=== PATIENT | male | born 1935 | race Asian ===

== ENCOUNTER 2018-03-17 12:40 | Emergency (ER) | payer OTHER ==
[2018-03-17 13:20] LABS: Potassium 4.2 mEq/L (3.6-5.0)
[2018-03-17 13:22] LABS: Absolute Lymphocytes (CBC) 1.6 K/uL (0.7-4.9); Absolute Monocytes 0.7 K/uL (0.1-1.3); Basophils % 0.5 % (0-1.3); Eosinophils % 0.8 % (0-4.4); Hematocrit 40.3 % (39.6-49.0); MCH 30.5 pg (27.0-35.0); MCV 92.9 fL (80-100); MPV 9.8 fL (7.6-11.3); Monocytes % 9.7 % (3.3-12.3); RBC Red Blood Cell Count 4.34 M/uL (4.33-5.43)
[2018-03-17 13:48] LABS: Urine Blood NEGATIVE (NEG); Urine Glucose NEGATIVE (NEG); Urine Protein 1+ (NEG); Urine Specific Gravity 1.015 (1.005-1.030)
--- NOTE | 2018-03-17 14:54 | EDPHYS ---
Physician Documentation [facility] Name: Mary Wray Age: 82 yrs Sex: Male : 1935 Arrival Date: 03/17/2018 Time: 12:42 Bed 2 Private MD: ED Physician Chetan Bey HPI: 03/17 12:56 This 82 yrs old Male presents to ER via EMS with complaints of combative. kdr 12:56 The patient was reported to be combative at the MD. He is normally A\T\O x1 and that has kdr not changed. He is presently not combative. Onset: The symptoms/episode began/occurred this morning. Severity of symptoms: At their worst the symptoms were mild in the emergency department the symptoms have resolved. It is unknown whether or not the patient has had similar symptoms in the past. It is unknown whether or not the patient has recently seen a physician. Historical: - Allergies: 12:47 No Known Allergies; hb - PMHx: 13:43 Hypertension; Alzheimers; Depression; Angina; Hypothyroidism; hb - Immunization history:: Adult Immunizations up to date. - Social history:: Smoking status: unknown. - Ebola Screening: : No symptoms or risks identified at this time. ROS: 12:56 Constitutional: Unable to determine due to patient baseline dementia kdr 12:56 Unable to obtain ROS due to baseline dementia. Exam: 12:56 Constitutional: This is a well developed, well nourished patient who is awake, alert, kdr and in no acute distress. Head/Face: Normocephalic, atraumatic. Eyes: Pupils equal round and reactive to light, extra-ocular motions intact. Lids and lashes normal. Conjunctiva and sclera are non-icteric and not injected. Cornea within normal limits. Periorbital areas with no swelling, redness, or edema. Neck: Trachea midline, no thyromegaly or masses palpated, and no cervical lymphadenopathy. Supple, full range of motion without nuchal rigidity, or vertebral point tenderness. No Meningismus. Chest/axilla: Normal chest wall appearance and motion. Nontender with no deformity. No lesions are appreciated. Cardiovascular: Regular rate and rhythm with a normal S1 and S2. No gallops, murmurs, or rubs. Normal PMI, no JVD. No pulse deficits. Respiratory: Lungs have equal breath sounds bilaterally, clear to auscultation and percussion. No rales, rhonchi or wheezes noted. No increased work of breathing, no retractions or nasal flaring. Abdomen/GI: Soft, non-tender, with normal bowel sounds. No distension or tympany. No guarding or rebound. No evidence of tenderness throughout. Back: No spinal tenderness. No costovertebral tenderness. Full range of motion. Skin: Warm, dry with normal turgor. Normal color with no rashes, no lesions, and no evidence of cellulitis. MS/ Extremity: Pulses equal, no cyanosis. Neurovascular intact. Full, normal range of motion. Vital Signs: 12:37 BP 170 / 75; Pulse 76; Resp 15; Temp 99.1; Pulse Ox 77% ; hb 13:30 BP 137 / 56; Pulse 69; Resp 17; Pulse Ox 100% on R/A; hb 14:30 BP 145 / 81; Pulse 67; Resp 15; Pulse Ox 100% on R/A; hb MDM: 14:54 Patient medically screened. kdr 16:11 Data reviewed: vital signs, nurses notes, lab test result(s), radiologic studies. kdr Counseling: I had a detailed discussion with the patient and/or guardian regarding: the historical points, exam findings, and any diagnostic results supporting the discharge/admit diagnosis, lab results, radiology results, the need for outpatient follow up. ED course: The patient was stable and there was no evidence of aggression in the ED. 03/17 12:55 Order name: CBC with Diff; Complete Time: 14:50 [facility] 03/17 12:55 Order name: Chem 7; Complete Time: 14:50 [facility] 03/17 12:55 Order name: Urine Dipstick-Ancillary (obtain specimen); Complete Time: 13:39 [facility] 03/17 12:55 Order name: CXR XRAY [facility] 03/17 13:40 Order name: Urine Dipstick--Ancillary (enter results) iw Administered Medications: No medications were administered Disposition: 03/17/18 14:54 Discharged to Home. Impression: Altered mental status, unspecified. - Condition is Stable. - Discharge Instructions: Confusion, Altered Mental Status. - Medication Reconciliation Form, Thank You Letter form. - Follow up: Private Physician; When: 2 - 3 days; Reason: If symptoms return, Further diagnostic work-up, Recheck today's complaints, Continuance of care, Re-evaluation by your physician. - Problem is an acute exacerbation. - Symptoms have improved. Signatures: Dispatcher [employer] Chetan Joel MD MD kdr Kavitha Linder RN RN iw Concepción Mckeon RN RN Corrections: (The following items were deleted from the chart) 16:20 14:54 03/17/2018 14:54 Discharged to Home. Impression: Altered mental status, iw unspecified. Condition is Stable. Forms are Medication Reconciliation Form, Thank You Letter, Antibiotic Education, Prescription Opioid Use. Follow up: Private Physician; When: 2 - 3 days; Reason: If symptoms return, Further diagnostic work-up, Recheck today's complaints, Continuance of care, Re-evaluation by your physician. Problem is an acute exacerbation. Symptoms have improved. kdr
--- NOTE | 2018-03-17 14:54 | ER ---
Nurse's Notes [facility] Name: Mary Wray Age: 82 yrs Sex: Male : 1935 Arrival Date: 03/17/2018 Time: 12:42 Bed 2 Private MD: Diagnosis: Altered mental status, unspecified Presentation: 03/17 12:44 Presenting complaint: EMS states: senior care staff reports pt is more combative and hb verbally abusive than normal. Hx Alzheimer's, AOx1 at baseline. Transition of care: patient was received from another setting of care (long-term care facility), [facility]. Onset of symptoms was March 17, 2018. Risk Assessment: Do you want to hurt yourself or someone else? Other: unable to assess, pt is confused. 12:44 Method Of Arrival: EMS: [facility] hb 12:44 Acuity: GIANA 2 hb 12:45 Initial Sepsis Screen: Does the patient meet any 2 criteria? No. Patient's initial iw sepsis screen is negative. Does the patient have a suspected source of infection? No. Patient's initial sepsis screen is negative. Care prior to arrival: None. Historical: - Allergies: 12:47 No Known Allergies; hb - PMHx: 13:43 Hypertension; Alzheimers; Depression; Angina; Hypothyroidism; hb - Immunization history:: Adult Immunizations up to date. - Social history:: Smoking status: unknown. - Ebola Screening: : No symptoms or risks identified at this time. Screenin:50 Abuse screen: no s/s abuse. hb 12:50 Nutritional screening: No deficits noted. Tuberculosis screening: No symptoms or risk hb factors identified. Fall Risk Total Bentley Fall Scale indicates High Risk Score (45 or more points). Fall prevention measures have been instituted. Side Rails Up X 2 Frequent Obs/Assessments Occuring As available patient and family educated on Fall Prevention Program and Strategies. Assessment: 12:45 General: Appears in no apparent distress. Behavior is calm, cooperative. Pain: Denies hb pain. Neuro: Level of Consciousness is awake, alert, obeys commands, confused, Oriented to person. Cardiovascular: Heart tones S1 S2 present Capillary refill < 3 seconds Patient's skin is warm and dry. Respiratory: Airway is patent Trachea midline Respiratory effort is even, unlabored, Respiratory pattern is regular, symmetrical, Breath sounds are clear bilaterally. GI: No signs and/or symptoms were reported involving the gastrointestinal system. : No signs and/or symptoms were reported regarding the genitourinary system. EENT: No signs and/or symptoms were reported regarding the EENT system. Derm: No signs and/or symptoms reported regarding the dermatologic system. Skin is intact, is healthy with good turgor, Skin is pink, warm \T\ dry. Musculoskeletal: No signs and/or symptoms reported regarding the musculoskeletal system. 13:07 Reassessment: received report from WINTER Acevedo at [facility], states that pt walked iw up to Nurse's station and started throwing picture frames and pill crushers, the DON and CAR DESIGNER on duty were unable to calm him down, pt had similar episode 2 days ago but staff was able to control him, denies any other complaints. 13:43 Reassessment: Patient appears in no apparent distress at this time. pt educated on need iw for urine specimen, pt stood with assistance at bedside, urine sample obtained via urinal. 14:39 Reassessment: Patient appears in no apparent distress at this time. Patient and/or hb family updated on plan of care and expected duration. Pain level reassessed. 15:07 Reassessment: Report called to ROBSON Gutierrez at [facility]. hb 16:19 Reassessment: Patient appears in no apparent distress at this time. pt ambulated out of iw ER with steady gait, with polymer tester. Vital Signs: 12:37 BP 170 / 75; Pulse 76; Resp 15; Temp 99.1; Pulse Ox 77% ; hb 13:30 BP 137 / 56; Pulse 69; Resp 17; Pulse Ox 100% on R/A; hb 14:30 BP 145 / 81; Pulse 67; Resp 15; Pulse Ox 100% on R/A; hb ED Course: 12:42 Patient arrived in ED. hj 12:45 Patient has correct armband on for positive identification. iw 12:47 Triage completed. hb 12:47 Arm band placed on right wrist. hb 12:49 Chetan Bey MD is Attending Physician. kdr 13:06 Initial lab(s) drawn, by me, sent to lab. Inserted saline lock: 20 gauge in left iw antecubital area, using aseptic technique. Blood collected. 13:47 Concepción Mckeon, RN is Primary Nurse. hb 13:58 X-ray completed. Portable x-ray completed in exam room. Patient tolerated procedure jb2 well. 14:00 CXR XRAY In Process Unspecified. EDMS 16:19 No provider procedures requiring assistance completed. IV discontinued, intact, iw bleeding controlled, No redness/swelling at site. Pressure dressing applied. Administered Medications: No medications were administered Outcome: 14:54 Discharge ordered by . kdr 16:19 [facility] iw 16:19 Condition: good 16:19 Discharge instructions given to polymer tester, Instructed on discharge instructions, follow up and referral plans. Demonstrated understanding of instructions, follow-up care. 16:20 Patient left the ED. iw Signatures: Dispatcher [employer] EDMS Chetan Bey MD MD [facility] jb2 Kavitha Linder, RN RN Steven Ray RN ROBSON Concepción Mckeon RN RN hb
--- NOTE | 2018-03-17 15:10 | RAD REPORT ---
EXAM DESCRIPTION: RAD - Chest Single View - 03/17/2018 2:00 pm CLINICAL HISTORY: Transient alteration of awareness, combative, possible pneumonia COMPARISON: None. TECHNIQUE: AP portable chest image was obtained 1358 hours . FINDINGS: No focal infiltrate. No failure or volume overload. Calcified granuloma is seen near the r ight hilum and there are apical pleural or parenchymal calcifications at the right apex. Minimal pleu ral plaquing at the lateral upper left lung field. Heart and vasculature are normal. No measurable pl eural effusion and no pneumothorax. No gross bony abnormality seen. No acute aortic findings suspecte d. IMPRESSION: No pneumonia or other acute cardiopulmonary finding. Chronic pleural and parenchymal changes are detailed above.
== END 2018-03-17 16:20 | disposition home or self-care (01) ==
LOC: ER 12:40
DX: R41.82 Altered mental status, unspecified (principal); I10 Essential (primary) hypertension; E03.9 Hypothyroidism, unspecified; G30.9 Alzheimer's disease, unspecified; F02.80 Dementia in other diseases classified elsewhere, unspecified severity, without behavioral disturbance, psychotic disturbance, mood disturbance, and anxiety
CPT/HCPCS: 36415; 71045; 80048; 81003; 85025; 99284

== ENCOUNTER 2018-03-31 23:36 | Emergency (ER) | payer OTHER ==
[2018-04-01 00:45] LABS: Absolute Monocytes 0.6 K/uL (0.1-1.3); Absolute Neutrophil 3.2 K/uL (1.8-8.0); Basophils % 0.3 % (0-1.3); Eosinophils % 1.1 % (0-4.4); Lymphocytes % 33.3 % (15.3-44.8); MCH 30.8 pg (27.0-35.0); MPV 9.7 fL (7.6-11.3); RBC Red Blood Cell Count 4.41 M/uL (4.33-5.43)
[2018-04-01 00:46] LABS: Potassium 3.9 mmol/L (3.5-5.1)
--- NOTE | 2018-04-01 01:49 | EDPHYS ---
Physician Documentation [facility] Name: Mary Wray Age: 82 yrs Sex: Male : 1935 Arrival Date: 03/31/2018 Time: 23:40 Bed 6 Private MD: ED Physician John York HPI: 04/01 00:10 This 82 yrs old Male presents to ER via EMS with complaints of Fall Injury. cp 00:10 Details of fall: The patient fell from an upright position. Onset: The symptoms/episode cp began/occurred found sitting on ground by staff of [facility]. Associated injuries: The patient sustained injury to the low back, pain. 00:10 Patient was found sitting on ground in room by nursing staff tonight. cp Historical: - Allergies: 03/31 23:45 No Known Allergies; tl2 - Home Meds: 23:45 clonidine HCl 0.1 mg Oral tab PRN [Active]; tl2 - PMHx: 23:45 Alzheimers; Angina; Depression; Hypertension; Hypothyroidism; tl2 - Immunization history:: Adult Immunizations up to date. - Social history:: Smoking status: Patient/guardian denies using tobacco. - Ebola Screening: : No symptoms or risks identified at this time. ROS: 04/01 00:17 Back: Positive for pain at rest, of the lumbar area. cp 00:17 Constitutional: Negative for fever. cp 00:17 Unable to obtain ROS due to baseline dementia. Exam: 00:22 Constitutional: The patient appears in no acute distress, alert, awake, cp non-diaphoretic, non-toxic, well developed, well nourished. 00:22 Head/Face: Normocephalic, atraumatic. cp 00:22 Eyes: Periorbital structures: appear normal, Pupils: equal, round, and reactive to light and accomodation, Conjunctiva: normal, no exudate, no injection, Sclera: no appreciated abnormality, Lids and lashes: appear normal, bilaterally. 00:22 ENT: External ear(s): are unremarkable, Ear canal(s): are normal, clear, TM's: bulging, is not appreciated, erythema, is not appreciated, bilaterally, Nose: is normal, Mouth: Lips: moist, Oral mucosa: pink and intact, moist, Posterior pharynx: is normal, airway is patent, no erythema, no exudate. 00:22 Neck: C-spine: vertebral tenderness, is not appreciated, crepitus, is not appreciated, ROM/movement: is normal, without pain, no range of motions limitations, no meningismus, no nuchal rigidity. 00:22 Chest/axilla: Inspection: normal, Palpation: is normal, no crepitus, no tenderness. 00:22 Cardiovascular: Rate: normal, Rhythm: regular. 00:22 Respiratory: the patient does not display signs of respiratory distress, Respirations: normal, no use of accessory muscles, no retractions, no splinting, no tachypnea, labored breathing, is not present, Breath sounds: are clear throughout, no decreased breath sounds, no stridor, no wheezing. 00:22 Abdomen/GI: Inspection: abdomen appears normal, Bowel sounds: active, all quadrants, Palpation: abdomen is soft and non-tender, in all quadrants, voluntary guarding, is not appreciated, involuntary guarding, is not appreciated. 00:22 Back: pain, that is very mild, of the lumbar area, ROM is normal, Straight leg raises: of both lower extremities does not illicit pain. 00:22 Musculoskeletal/extremity: Exam is negative for decreased range of motion, deformity, injury. 00:22 Skin: cellulitis, is not appreciated, no rash present. 00:22 Neuro: Orientation: to person, Mentation: able to follow commands, Motor: moves all fours, strength is normal. Vital Signs: 03/31 23:45 BP 154 / 71; Pulse 65; Resp 18; Temp 97.7(O); Pulse Ox 95% on R/A; Weight 49.9 kg; tl2 Height 5 ft. 5 in. (165.10 cm); Pain 0/10; 04/01 00:43 BP 144 / 66; Pulse 61; Resp 16; Pulse Ox 100% on R/A; Pain 0/10; tl1 01:48 BP 162 / 66; Pulse 56; Resp 18; Pulse Ox 100% on R/A; tl2 02:12 BP 147 / 72; Pulse 62; Resp 17; Pulse Ox 98% on R/A; Pain 0/10; tl1 03/31 23:45 Body Mass Index 18.30 (49.90 kg, 165.10 cm) tl2 MDM: 03/31 23:49 Patient medically screened. 04/01 01:46 Data reviewed: vital signs, nurses notes, lab test result(s), radiologic studies, CT cp scan, plain films. Test interpretation: by ED physician or midlevel provider: plain radiologic studies. ED course: CT results of head/c-spine negative for significant injury. Will discharge patient back to [facility] for continued monitoring. 04/01 00:02 Order name: BMP; Complete Time: 00:52 cp 04/01 00:52 Interpretation: Normal except: BUN 23; GFR 72. cp 04/01 00:02 Order name: CBC with Diff; Complete Time: 00:52 cp 04/01 00:02 Order name: XRAY Pelvis cp 04/01 00:02 Order name: XRAY Lumbar Spine (3 Views) cp 04/01 00:02 Order name: CT Head C Spine cp 04/01 01:46 Order name: Urine Dipstick--Ancillary (enter results) 2 04/01 00:02 Order name: Urine Dipstick-Ancillary (obtain specimen); Complete Time: 02:49 cp Administered Medications: No medications were administered Point of Care Testing: Blood Glucose: 03/31 23:45 Blood Glucose: 95 mg/dL; tl2 Ranges: Critical Glucose Levels:Adult <50 mg/dl or >400 mg/dl <40 mg/dl or >180 mg/dl Disposition: 04/01 02:25 Chart complete. 06:48 Co-signature as Attending Physician, John York MD. Disposition: 04/01/18 01:49 Discharged to Home. Impression: Low back pain. - Condition is Stable. - Discharge Instructions: Back Pain, Adult. - SBAR form, Medication Reconciliation Form, Thank You Letter, Antibiotic Education, Prescription Opioid Use form. - Follow up: Private Physician; When: 1 - 2 days; Reason: Recheck today's complaints. - Problem is new. - Symptoms are unchanged. - Notes: may take OTC tylenol as directed for pain Signatures: Dispatcher [employer] EDMS Pj Rao PA PA cp Deepti Camacho RN RN tl2 John York MD MD Corrections: (The following items were deleted from the chart) 02:50 01:49 04/01/2018 01:49 Discharged to Home. Impression: Low back pain. Condition is tl2 Stable. Forms are Medication Reconciliation Form, Thank You Letter, Antibiotic Education, Prescription Opioid Use. Follow up: Private Physician; When: 1 - 2 days; Reason: Recheck today's complaints. Problem is new. Symptoms are unchanged. cp
--- NOTE | 2018-04-01 01:49 | ER ---
Nurse's Notes [facility] Name: Mary Wray Age: 82 yrs Sex: Male : 1935 Arrival Date: 03/31/2018 Time: 23:40 Bed 6 Private MD: Diagnosis: Low back pain Presentation: 03/31 23:41 Presenting complaint: EMS states: Found in room at [facility] sitting on floor. tl2 jail reported that pt had altered mental status. Pt is awake and alert. Pt denies injury. Hx of Alzheimer's baseline AOx1. Transition of care: patient was received from another setting of care (long-term care facility), [facility]. Onset of symptoms was March 31, 2018 at 23:00. Risk Assessment: Do you want to hurt yourself or someone else? Patient reports no desire to harm self or others. Initial Sepsis Screen: Does the patient meet any 2 criteria? No. Patient's initial sepsis screen is negative. Does the patient have a suspected source of infection? No. Patient's initial sepsis screen is negative. Care prior to arrival: None. 23:41 Method Of Arrival: EMS: [facility] tl2 23:41 Acuity: GIANA 3 tl2 Triage Assessment: 23:45 General: Appears in no apparent distress. comfortable, Behavior is calm, cooperative, tl2 appropriate for age. Pain: Denies pain. Neuro: Level of Consciousness is awake, alert, obeys commands, Oriented to person. Cardiovascular: Denies chest pain. Respiratory: Airway is patent Respiratory effort is even, unlabored, Respiratory pattern is regular, symmetrical. GI: No signs and/or symptoms were reported involving the gastrointestinal system. : No signs and/or symptoms were reported regarding the genitourinary system. Derm: Skin is pink, warm \T\ dry. Bruising that is yellow, on right bicep. Historical: - Allergies: 23:45 No Known Allergies; tl2 - Home Meds: 23:45 clonidine HCl 0.1 mg Oral tab PRN [Active]; tl2 - PMHx: 23:45 Alzheimers; Angina; Depression; Hypertension; Hypothyroidism; tl2 - Immunization history:: Adult Immunizations up to date. - Social history:: Smoking status: Patient/guardian denies using tobacco. - Ebola Screening: : No symptoms or risks identified at this time. Screenin:47 Abuse screen: Denies threats or abuse. Nutritional screening: No deficits noted. tl2 Tuberculosis screening: No symptoms or risk factors identified. Fall Risk Fall in past 12 months (25 points). Assessment: 04/01 00:44 General: Appears in no apparent distress. Behavior is calm, cooperative, appropriate tl1 for age. Pain: Denies pain. Neuro: Level of Consciousness is awake, alert, Oriented to person. Cardiovascular: Denies chest pain. Respiratory: Airway is patent Trachea midline Respiratory effort is even, unlabored, Breath sounds are clear bilaterally. GI: Abdomen is non-distended, Bowel sounds present X 4 quads. Abd is soft and non tender X 4 quads. : No signs and/or symptoms were reported regarding the genitourinary system. EENT: No signs and/or symptoms were reported regarding the EENT system. Derm: No signs and/or symptoms reported regarding the dermatologic system. 01:52 Reassessment: Patient and/or family updated on plan of care and expected duration. Pain tl1 level reassessed. Patient is alert, oriented x 3, equal unlabored respirations, skin warm/dry/pink. Called [facility] to advise that Mr Wray was being discharged. Nurse stated she will contact [facility] to arrange transfer Patient denies pain at this time. 02:49 Reassessment: Patient appears in no apparent distress at this time. Patient and/or tl2 family updated on plan of care and expected duration. Pain level reassessed. Pt stable and ready for transport back to facility. Vital Signs: 03/31 23:45 BP 154 / 71; Pulse 65; Resp 18; Temp 97.7(O); Pulse Ox 95% on R/A; Weight 49.9 kg; tl2 Height 5 ft. 5 in. (165.10 cm); Pain 0/10; 04/01 00:43 BP 144 / 66; Pulse 61; Resp 16; Pulse Ox 100% on R/A; Pain 0/10; tl1 01:48 BP 162 / 66; Pulse 56; Resp 18; Pulse Ox 100% on R/A; tl2 02:12 BP 147 / 72; Pulse 62; Resp 17; Pulse Ox 98% on R/A; Pain 0/10; tl1 03/31 23:45 Body Mass Index 18.30 (49.90 kg, 165.10 cm) tl2 ED Course: 03/31 23:40 Patient arrived in ED. tl2 23:45 Triage completed. tl2 23:45 Arm band placed on right wrist. tl2 23:47 Patient has correct armband on for positive identification. Placed in gown. Bed in low tl2 position. Call light in reach. Side rails up X2. Adult w/ patient. 23:48 Deepti Camacho RN is Primary Nurse. tl2 23:49 Pj Rao PA is PHCP. cp 23:49 John York MD is Attending Physician. cp 04/01 00:08 No provider procedures requiring assistance completed. Initial lab(s) drawn, by mt, tl1 sent to lab. 00:22 Patient moved to radiology via stretcher. kw 00:22 X-ray completed. Portable x-ray completed in exam room. Patient tolerated procedure kw well. 00:[address] via stretcher. kw 00:23 XRAY Pelvis In Process Unspecified. EDMS 00:23 XRAY Lumbar Spine (3 Views) In Process Unspecified. EDMS 00:35 CT Head C Spine In Process Unspecified. EDMS 00:50 CT completed. Patient tolerated procedure well. Patient moved back from CT. eh 02:49 Patient did not have IV access during this emergency room visit. tl2 Administered Medications: No medications were administered Point of Care Testing: Blood Glucose: 03/31 23:45 Blood Glucose: 95 mg/dL; tl2 Ranges: Outcome: 04/01 01:49 Discharge ordered by MD. cp 02:49 Discharged to senior living. tl2 02:49 Condition: stable 02:49 Discharge instructions given to patient, Instructed on discharge instructions. 02:50 Patient left the ED. tl2 Signatures: Dispatcher [employer] EDMS Brendon Weaver Kimberlee kw Lasagna, Tonya, RN RN tl1 Pj Rao PA PA cp Knox, Taylor, RN RN tl2 Corrections: (The following items were deleted from the chart) 03/31 23:51 23:41 Presenting complaint: EMS states: Found in room at [facility] sitting on tl2 floor. jail reported that pt had altered mental status. Pt is awake and alert. Pt denies injury. tl2 23:51 23:45 Neuro: Level of Consciousness is awake, alert, obeys commands, Oriented to tl2 person, place, tl2
[2018-04-01 02:25] LABS: Urine Blood NEGATIVE (NEG); Urine Glucose NEGATIVE (NEG); Urine Protein TRACE (NEG); Urine Specific Gravity 1.015 (1.005-1.030); Urine pH 7.5 (5.0-7.0)
--- NOTE | 2018-04-01 07:34 | RAD REPORT ---
EXAM DESCRIPTION: RAD - Lumbar Spine 3 Views - 04/01/2018 12:27 am CLINICAL HISTORY: Fall, back pain COMPARISON: None. FINDINGS: A three-view lumbar spine examination was performed. Lumbar bodies are normal in height and alignment. Bones are osteopenic. No compression fracture or ac [place] bone finding in the lumbar spine. No significant disc space narrowing. Facet degenerative changes are present but relatively mild. There is a minimal scoliotic curvature in the lumbar spine with a r ight convex [place] at L1-2 and a left convexity at L4-5. No pars defects identified. Approximately 30% wedge compression of the T12 body is present. Posterior wall height is preserved. N o lytic, blastic or expansile component. Age is uncertain. No comparison is available to establish th e stability. IMPRESSION: Approximately 30% wedge compression T12 with posterior wall height preserved. T12 fracture is of uncertain age. Correlation is needed with any pain localizing to the lumbosacral j unction. Osteopenic and degenerative change of the lumbar spine with no acute lumbar findings.
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
--- NOTE | 2018-04-01 08:16 | RAD REPORT ---
EXAM DESCRIPTION: RAD - Pelvis - 04/01/2018 12:24 am CLINICAL HISTORY: Fall, Alzheimer's disease, pelvic and hip pain COMPARISON: None. TECHNIQUE: AP imaging of the pelvis was obtained. FINDINGS: No bony pelvic fracture. No fracture or dislocation of either proximal femur. No acute foc al femoral head abnormality suspected. Mild, symmetric degenerative change present along the superior aspect of each acetabular rim. Osteopenic and degenerative lumbar spine changes are present separate ly reported. No gross sacral ala abnormality seen. However, osteopenia and overlying bowel content ar e limiting. SI joint degenerative change is mild. No suspicious soft tissue finding. IMPRESSION: No fracture or acute finding.
== END 2018-04-01 02:50 | disposition home or self-care (01) ==
LOC: ER 23:36
DX: M54.5 Low back pain (principal); W19.XXXA Unspecified fall, initial encounter; Y93.9 Activity, unspecified; Y92.129 Unspecified place in nursing home as the place of occurrence of the external cause; I10 Essential (primary) hypertension; G30.9 Alzheimer's disease, unspecified; F02.80 Dementia in other diseases classified elsewhere, unspecified severity, without behavioral disturbance, psychotic disturbance, mood disturbance, and anxiety
CPT/HCPCS: 36415; 70450; 72100; 72125; 72170; 80048; 81003; 85025; 99284

== ENCOUNTER 2018-10-29 07:23 | Emergency (ER) | payer OTHER ==
[2018-10-29 07:51] LABS: Absolute Lymphocytes (CBC) 0.4 K/uL (0.7-4.9); Absolute Monocytes 0.2 K/uL (0.1-1.3); Absolute Neutrophil 8.8 K/uL (1.8-8.0); Basophils % 0.3 % (0-1.3); Eosinophils % 0.3 % (0-4.4); Hematocrit 44.6 % (39.6-49.0); Lymphocytes % 4.7 % (15.3-44.8); MPV 9.4 fL (7.6-11.3); Monocytes % 2.6 % (3.3-12.3); RBC Red Blood Cell Count 4.74 M/uL (4.33-5.43)
[2018-10-29 08:12] LABS: ALT/SGPT 64 U/L (12-78); AST/SGOT 54 U/L (15-37); Albumin 3.7 g/dL (3.4-5.0); Alkaline Phosphatase 64 U/L (45-117); Amylase Level 62 U/L (25-115); BUN Blood Urea Nitrogen 33 mg/dL (7-18); Bicarbonate 30 mmol/L (21-32); Bilirubin Direct 0.2 mg/dL (0-0.2); Bilirubin Total 0.6 mg/dL (0.2-1.0); Glucose Level 118 mg/dL (74-106); Lipase 145 U/L (73-393); Potassium 4.3 mmol/L (3.5-5.1); Protein, Total 7.6 g/dL (6.4-8.2); Sodium Level 145 mmol/L (136-145); Troponin I < 0.02 ng/mL (0.0-0.045)
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
[2018-10-29 08:26] LABS: Platelet Estimate ADEQ; Urine White Blood Cell Casts OK
[2018-10-29 08:27] LABS: Blood Morphology Comment NOT SEEN (NOT SEEN)
--- NOTE | 2018-10-29 08:52 | RAD REPORT ---
EXAM DESCRIPTION: RAD - Chest Single View - 10/29/2018 8:38 am CLINICAL HISTORY: DYSPNEA Chest pain. COMPARISON: Chest Single View dated 03/17/2018 FINDINGS: Portable technique limits examination quality. The lungs are grossly clear. The heart is normal in size. No displaced fractures. IMPRESSION: No acute intrathoracic process suspected.
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
[2018-10-29] MEDS ORDERED: NA CHLORIDE 0.9% 1,000 ML ONE (09:30)
[2018-10-29] MEDS ORDERED: ACETAMINOPHEN 325 MG TABLET ONE (09:49)
[2018-10-29 10:50] LABS: Urine Blood NEGATIVE (NEG); Urine Glucose NEGATIVE (NEG); Urine Protein TRACE (NEG); Urine Specific Gravity 1.015 (1.005-1.030)
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
--- NOTE | 2018-10-29 21:22 | EKG ---
Test Date: 2018-10-29 Test Time: 08:18:25 Emergency Room Clerk: IRMA MEASUREMENT RESULTS: Intervals: Rate: 96 CO: 150 QRSD: 74 QT: 314 QTc: 396 [place]: P: 84 CO: 150 QRS: 7 T: -72 INTERPRETIVE STATEMENTS: Sinus rhythm with premature atrial complexes ST & T wave abnormality, consider inferior ischemia ST & T wave abnormality, consider anterolateral ischemia Abnormal ECG No previous ECG available for comparison Electronically Signed On 10-29-18 21:20:33 [employer] by Olu Maldonado
== END 2018-10-29 11:11 | disposition home or self-care (01) ==
LOC: ER 07:23
DX: G44.309 Post-traumatic headache, unspecified, not intractable (principal); W10.2XXA Fall (on)(from) incline, initial encounter; Y93.9 Activity, unspecified; Y92.129 Unspecified place in nursing home as the place of occurrence of the external cause; Z79.82 Long term (current) use of aspirin; E78.5 Hyperlipidemia, unspecified; E03.9 Hypothyroidism, unspecified; I10 Essential (primary) hypertension; F32.9 Major depressive disorder, single episode, unspecified; F41.9 Anxiety disorder, unspecified; G30.9 Alzheimer's disease, unspecified; F02.80 Dementia in other diseases classified elsewhere, unspecified severity, without behavioral disturbance, psychotic disturbance, mood disturbance, and anxiety
CPT/HCPCS: 36415; 70450; 71045; 72125; 72170; 80048; 80076; 80320; 81003; 82150; 83690; 84484; 85025; 86850; 86900; 86901; 93005; 96360; 99285; J7030

== ENCOUNTER 2018-11-10 10:17 | Emergency (ER) | payer OTHER ==
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
--- NOTE | 2018-11-10 11:06 | RAD REPORT ---
EXAM DESCRIPTION: CT - Head C Spine Mpr Wo Con - 11/10/2018 10:52 am CLINICAL HISTORY: Head and neck injury status post fall. Head and neck pain COMPARISON: October 2018 and March 2018 TECHNIQUE: Computed axial tomography of the head and cervical spine was obtained. Sagittal and coronal reconstruction was performed. All CT scans are performed using dose optimization technique as appropriate and may include automated exposure control or mA/KV adjustment according to patient size. FINDINGS: A right parietal scalp swelling is seen without an underlying skull fracture. Diffuse cerebral atrophy is present. An intracranial bleed is not seen. The ventricles are normal in caliber. An extra-axial fluid collection is not noted.Fluid within the visualized sinuses and mastoi ds is not seen A cervical fracture is not visualized. No dislocation is noted. Mild posterior subluxation of C5 on C 6 is unchanged. Loss of the lordosis is unchanged. 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 A cervical fracture is not visualized. If the patient continues to have symptoms to suggest intracra nial /spinal cord pathology then MRI would be recommended
--- NOTE | 2018-11-10 11:12 | RAD REPORT ---
EXAM DESCRIPTION: Ambrosio Single View11/10/2018 10:52 am CLINICAL HISTORY: Chest pain COMPARISON: October 2018 FINDINGS: The lungs appear clear of acute infiltrate. The heart is normal size IMPRESSION: No acute abnormalities displayed
[2018-11-10 11:31] LABS: Absolute Lymphocytes (CBC) 1.5 K/uL (0.7-4.9); Absolute Monocytes 0.5 K/uL (0.1-1.3); Absolute Neutrophil 6.5 K/uL (1.8-8.0); Basophils % 0.3 % (0-1.3); Eosinophils % 0.2 % (0-4.4); Hematocrit 40.6 % (39.6-49.0); Lymphocytes % 17.8 % (15.3-44.8); MPV 9.1 fL (7.6-11.3); Monocytes % 5.6 % (3.3-12.3); RBC Red Blood Cell Count 4.32 M/uL (4.33-5.43)
[2018-11-10 11:46] LABS: Potassium 4.1 mmol/L (3.5-5.1)
[2018-11-10] MEDS ORDERED: NA CHLORIDE 0.9% 500 ML ONE (12:08)
--- NOTE | 2018-11-10 12:58 | ER ---
Nurse's Notes [facility] Name: Mary Wray Age: 83 yrs Sex: Male : 1935 Arrival Date: 11/10/2018 Time: 10:16 Bed 20 Private MD: Diagnosis: Dehydration;Fall;Superficial injury of head Presentation: 11/10 10:17 Presenting complaint: EMS states: from [facility], unwitnessed fall this AM, hj leaning against the wall, hx of Alzheimer's, baseline A\T\O x1; on back board, C collar, per EMS, complaining of head pain; takes aspirin daily; BGL- 182; been falling for the last 2 weeks;. Transition of care: patient was not received from another setting of care. Onset of symptoms was November 10, 2018. Risk Assessment: Do you want to hurt yourself or someone else? Patient reports no desire to harm self or others. Initial Sepsis Screen: Does the patient meet any 2 criteria? No. Patient's initial sepsis screen is negative. Does the patient have a suspected source of infection? No. Patient's initial sepsis screen is negative. Care prior to arrival: None. 10:17 Method Of Arrival: EMS: [facility] 10:17 Acuity: GIANA 4 10:21 Mechanism of Injury: Fall. Trauma event details: Injury occurred in the [facility], Injury occurred: in an institution. Injury occurred: November 10, 2018. Triage Assessment: 10:20 General: Appears in no apparent distress. uncomfortable, Behavior is cooperative, hj appropriate for age. Pain: Complains of pain in head. EENT: No signs and/or symptoms were reported regarding the EENT system. Neuro: Level of Consciousness is awake, alert, Oriented to place. Cardiovascular: Capillary refill < 3 seconds Patient's skin is warm and dry. Respiratory: Airway is patent Respiratory effort is even, unlabored, Respiratory pattern is regular, symmetrical. GI: No deficits noted. : No signs and/or symptoms were reported regarding the genitourinary system. Derm: No signs and/or symptoms reported regarding the dermatologic system. Musculoskeletal: No signs and/or symptoms reported regarding the musculoskeletal system. Trauma Activation: Not Applicable Physician: ED Physician; Name: ; Notified At: ; Arrived At: Physician: General Surgeon; Name: ; Notified At: ; Arrived At: Physician: Radiology; Name: ; Notified At: ; Arrived At: Physician: Respiratory; Name: ; Notified At: ; Arrived At: Physician: Lab; Name: ; Notified At: ; Arrived At: Historical: - Allergies: 10:20 No Known Allergies; hj - PMHx: 10:20 Alzheimers; Angina; Anxiety; Depression; Hyperlipidemia; Hypertension; Hypothyroidism; hj - PSHx: 10:20 Unable to obtain; hj - Immunization history:: Adult Immunizations unknown. - Social history:: Smoking status: unknown. - Immunization history: Last tetanus immunization: - up to date. - Ebola Screening: : Patient negative for fever greater than or equal to 101.5 degrees Fahrenheit, and additional compatible Ebola Virus Disease symptoms Patient denies exposure to infectious person Patient denies travel to an Ebola-affected area in the 21 days before illness onset. - Family history:: not pertinent. - Hospitalizations: : No recent hospitalization is reported. Screenin:21 Abuse screen: Denies threats or abuse. Denies injuries from another. Nutritional hj screening: No deficits noted. Tuberculosis screening: No symptoms or risk factors identified. Fall Risk Fall in past 12 months (25 points). Mental Status-. Primary Survey: 10:21 NO uncontrolled hemorrhage observed. A: The patient is alert. Airway: patent, No hj supplemental oxygen in use on arrival. Oral cavity: clear, Trachea midline. Breathing/Chest: Respiratory pattern: regular, Respiratory effort: spontaneous, unlabored, Breath sounds: clear, Chest inspection: symmetrical rise and fall of the chest. Circulation: Cardiac rhythm: sinus rhythm Heart tones present. Pulses: palpable right radial artery, right posterior tibial artery, left radial artery and left posterior tibial artery. Skin color: pink, Skin temperature: warm, dry. Disability Alert. 10:21 Exposure/Environment: All clothing and personal items were removed. Forensic evidence hj collection is not deemed to be indicated at this time. Items placed in patient belonging bag. There is no evidence of uncontrolled external bleeding. No obvious injuries are noted at this time. A warming method has been applied: A warm blanket has been provided to the patient. Reassessment Airway Airway Patent Oxygen No O2 Oral cavity Clear +Gag reflex Trachea Midline Breathing/Chest Respiratory pattern Regular Respiratory effort Spontaneous Unlabored Breath sounds Clear Chest inspection Symmetrical Circulation Heart rhythm Sinus rhythm Heart tones Present Pulses Palpable Color [place] Temperature Warm Dry Disability Alert. Secondary Survey: 10:30 HEENT: Head Other presence of scalp hematoma;. hj 10:30 Gastrointestinal: No deficits noted. : No signs and/or symptoms were reported hj regarding the genitourinary system. Musculoskeletal: Reports pain in head, shoulders. Vital Signs: 10:21 BP 150 / 104; Pulse 100; Resp 18; Temp 98.1(TE); Pulse Ox 98% on R/A; Weight 61.23 kg; hj Height 5 ft. 0 in. (152.40 cm); 11:30 BP 142 / 90; Pulse 95; Resp 18; Pulse Ox 100% on R/A; hj 12:34 BP 132 / 90; Pulse 89; Resp 18; Pulse Ox 100% on R/A; hj 13:46 BP 130 / 89; Pulse 85; Resp 18; Pulse Ox 100% on R/A; hj 10:21 Body Mass Index 26.37 (61.23 kg, 152.40 cm) hj Oneil Coma Score: 10:21 Eye Response: spontaneous(4). Verbal Response: incomprehensible(2). Motor Response: hj obeys commands(6). Total: 12. Trauma Score (Adult): 10:21 Eye Response: spontaneous(1); Verbal Response: oriented(1); Motor Response: obeys hj commands(2); Systolic BP: > 89 mm Hg(4); Respiratory Rate: 10 to 29 per min(4); Oneil Score: 15; Trauma Score: 12 ED Course: 10:16 Patient arrived in ED. hj 10:19 Triage completed. hj 10:21 Chris Mack MD is Attending Physician. rn 10:21 Arm band placed on right wrist. hj 10:21 Patient has correct armband on for positive identification. Placed in gown. Bed in low hj position. Call light in reach. Side rails up X 1. 10:21 Patient maintains SpO2 saturation greater than 95% on room air. hj 10:21 Thermoregulation: warm blanket given to patient. hj 10:38 Steven Ray, ROBSON is Primary Nurse. hj 10:47 X-ray completed. Portable x-ray completed in exam room. sw 10:[address] via stretcher. sw 10:50 XRAY Chest (1 view) In Process Unspecified. EDMS 10:50 CT completed. Patient tolerated procedure well. Patient moved to CT via stretcher. [email or web address] Patient moved back from CT. 10:51 XRAY Pelvis In Process Unspecified. EDMS 10:52 CT Head C Spine In Process Unspecified. EDMS 11:07 EKG done, by senior technical support analyst. reviewed by Chris Mack MD. 3 11:13 Side rails up X2. Warm blanket given. material chaser on. Pulse ox on. NIBP on. 5 11:19 Initial lab(s) drawn, by ED staff, sent to lab. Inserted saline lock: 22 gauge in left hj forearm, using aseptic technique. ,using aseptic technique. PC, SN Blood collected. 13:11 No provider procedures requiring assistance completed. IV discontinued, intact, hj bleeding controlled, No redness/swelling at site. Pressure dressing applied. Administered Medications: 11:56 Drug: NS 0.9% 500 ml Route: IV; Rate: bolus; Site: left antecubital; hj 12:47 Follow up: IV Status: Completed infusion; IV Intake: 500ml hj Intake: 12:47 IV: 500ml; Total: 500ml. hj 13:45 PO: 50ml; Total: 550ml. hj Output: 13:45 Urine: 100ml (Straight Cath); Total: 100ml. hj Outcome: 12:58 Discharge ordered by . rn 13:11 Discharged to fdc. Report called to ROBSON Kellernurse staff community health form completed. hj 13:11 Condition: stable 13:11 Discharge instructions given to patient, fdc, Instructed on discharge instructions, follow up and referral plans. Demonstrated understanding of instructions, follow-up care. 13:46 Patient's length of stay in the Emergency Department was greater than 2 hours. hj 13:46 Patient left the ED. hj Signatures: Dispatcher [employer] EDMS Chris Mack MD MD rn Warren, Shannon sw Joaquin, Henry, RN RN hj Martinez, Maria [facility] Sunitha Gonzalez 3 Yas Miguel6
--- NOTE | 2018-11-10 12:59 | EDPHYS ---
Physician Documentation [facility] Name: Mary Wray Age: 83 yrs Sex: Male : 1935 Arrival Date: 11/10/2018 Time: 10:16 Bed 20 Private MD: ED Physician Chris Mack HPI: 11/10 10:55 This 83 yrs old Male presents to ER via EMS with complaints of Fall Injury. rn 10:55 Details of fall: The patient fell from an upright position, while walking. Onset: The rn symptoms/episode began/occurred just prior to arrival. Associated injuries: The patient sustained injury to the head. Severity of symptoms: At their worst the symptoms were mild, in the emergency department the symptoms are unchanged. The patient has experienced similar episodes in the past. Per longterm, unwitnessed fall, found on floor, sitting against wall, no seizure/vomiting/LOC. Has been falling a lot recently. . Historical: - Allergies: 10:20 No Known Allergies; hj - PMHx: 10:20 Alzheimers; Angina; Anxiety; Depression; Hyperlipidemia; Hypertension; Hypothyroidism; hj - PSHx: 10:20 Unable to obtain; hj - Immunization history:: Adult Immunizations unknown. - Social history:: Smoking status: unknown. - Immunization history: Last tetanus immunization: - up to date. - Ebola Screening: : Patient negative for fever greater than or equal to 101.5 degrees Fahrenheit, and additional compatible Ebola Virus Disease symptoms Patient denies exposure to infectious person Patient denies travel to an Ebola-affected area in the 21 days before illness onset. - Family history:: not pertinent. - Hospitalizations: : No recent hospitalization is reported. ROS: 10:55 Constitutional: Negative for fever, chills, and weight loss, Eyes: Negative for injury, rn pain, redness, and discharge, Neck: Negative for injury, pain, and swelling, Cardiovascular: Negative for chest pain, palpitations, and edema, Respiratory: Negative for shortness of breath, cough, wheezing, and pleuritic chest pain, Abdomen/GI: Negative for abdominal pain, nausea, vomiting, diarrhea, and constipation, MS/Extremity: Negative for injury and deformity, Skin: Negative for injury, rash, and discoloration, Neuro: Negative for numbness, tingling, and seizure. Exam: 10:55 Constitutional: This is a well developed, well nourished patient who is awake, alert, rn and in no acute distress. Head/Face: Normocephalic, atraumatic. Eyes: Pupils equal round and reactive to light, extra-ocular motions intact. Lids and lashes normal. Conjunctiva and sclera are non-icteric and not injected. Cornea within normal limits. Periorbital areas with no swelling, redness, or edema. ENT: MMM Neck: in ccollar, no midline tenderness Chest/axilla: + old healing bruise left lateral/posterior ribs, no crepitus Cardiovascular: Regular rate and rhythm with a normal S1 and S2. No gallops, murmurs, or rubs. Normal PMI, no JVD. No pulse deficits. Respiratory: Lungs have equal breath sounds bilaterally, clear to auscultation. No increased work of breathing, no retractions or nasal flaring. Abdomen/GI: soft, non-tender Skin: Warm, dry with normal turgor. Normal color with no rashes, no lesions, and no evidence of cellulitis. MS/ Extremity: Pulses equal, no cyanosis. Neurovascular intact. Full, normal range of motion. Equal circumference. Neuro: Awake and alert, GCS 15, oriented to person, place, time, and situation. Cranial nerves II-XII grossly intact. Motor strength 5/5 in all extremities. Sensory grossly intact. Vital Signs: 10:21 BP 150 / 104; Pulse 100; Resp 18; Temp 98.1(TE); Pulse Ox 98% on R/A; Weight 61.23 kg; Height 5 ft. 0 in. (152.40 cm); 11:30 BP 142 / 90; Pulse 95; Resp 18; Pulse Ox 100% on R/A; hj 12:34 BP 132 / 90; Pulse 89; Resp 18; Pulse Ox 100% on R/A; hj 13:46 BP 130 / 89; Pulse 85; Resp 18; Pulse Ox 100% on R/A; hj 10:21 Body Mass Index 26.37 (61.23 kg, 152.40 cm) Oneil Coma Score: 10:21 Eye Response: spontaneous(4). Verbal Response: incomprehensible(2). Motor Response: obeys commands(6). Total: 12. Trauma Score (Adult): 10:21 Eye Response: spontaneous(1); Verbal Response: oriented(1); Motor Response: obeys hj commands(2); Systolic BP: > 89 mm Hg(4); Respiratory Rate: 10 to 29 per min(4); Oneil Score: 15; Trauma Score: 12 MDM: 10:21 Patient medically screened. rn 12:56 Differential diagnosis: abrasion, closed head injury, contusion. Data reviewed: vital rn signs, nurses notes, lab test result(s), radiologic studies, CT scan, plain films, and as a result, I will discharge patient. Counseling: I had a detailed discussion with the patient and/or guardian regarding: the historical points, exam findings, and any diagnostic results supporting the discharge/admit diagnosis, lab results, radiology results, the need for outpatient follow up, to return to the emergency department if symptoms worsen or persist or if there are any questions or concerns that arise at home. Special discussion: I discussed with the patient/guardian in detail that at this point there is no indication for admission to the hospital. It is understood, however, that if the symptoms persist or worsen the patient needs to return immediately for re-evaluation. ED course: Pt with dehydration, neg ct head/cspine, will dc home. . 11/10 10:33 Order name: Urine Microscopic Only rn 11/10 10:34 Order name: CBC with Diff; Complete Time: 11:50 rn 11/10 10:30 Order name: CT Head C Spine; Complete Time: 11:16 rn 11/10 10:30 Order name: XRAY Chest (1 view); Complete Time: 11:16 rn 11/10 10:33 Order name: XRAY Pelvis; Complete Time: 11:16 rn 11/10 10:34 Order name: Basic Metabolic Panel; Complete Time: 11:50 rn 11/10 10:33 Order name: Urine Dipstick-Ancillary (obtain specimen); Complete Time: 12:31 rn 11/10 10:34 Order name: IV Start; Complete Time: 11:21 rn 11/10 10:34 Order name: EKG; Complete Time: 10:35 rn 11/10 10:34 Order name: EKG - Nurse/Tech; Complete Time: 10:57 rn Administered Medications: 11:56 Drug: NS 0.9% 500 ml Route: IV; Rate: bolus; Site: left antecubital; hj 12:47 Follow up: IV Status: Completed infusion; IV Intake: 500ml Disposition: 11/10/18 12:58 Discharged to Home. Impression: Dehydration, Fall, Superficial injury of head. - Condition is Stable. - Discharge Instructions: Dehydration, Elderly, Head Injury, Adult. - Medication Reconciliation Form, Thank You Letter, Antibiotic Education, Prescription Opioid Use form. - Follow up: Private Physician; When: As needed; Reason: Recheck today's complaints, Re-evaluation by your physician. - Problem is new. - Symptoms have improved. Signatures: Dispatcher [employer] EDMS Chris Mack MD MD rn Joaquin, Henry, RN RN hj Corrections: (The following items were deleted from the chart) 13:46 12:58 11/10/2018 12:58 Discharged to Home. Impression: Dehydration; Fall; Superficial hj injury of head. Condition is Stable. Forms are Medication Reconciliation Form, Thank You Letter, Antibiotic Education, Prescription Opioid Use. Follow up: Private Physician; When: As needed; Reason: Recheck today's complaints, Re-evaluation by your physician. Problem is new. Symptoms have improved. rn
[2018-11-10 13:55] LABS: Urine Bacteria <20 /HPF (NONE SEEN); Urine Culture Reflex Order NOT NEEDED; Urine RBC <5 /HPF (NONE SEEN)
--- NOTE | 2018-11-10 17:11 | EKG ---
Test Date: 2018-11-10 Test Time: 11:02:39 Belt Picker: [email or web address] MEASUREMENT RESULTS: Intervals: Rate: 91 OH: 144 QRSD: 70 QT: 318 QTc: 391 [place]: P: 82 OH: 144 QRS: 7 T: -60 INTERPRETIVE STATEMENTS: Normal sinus rhythm ST & T wave abnormality, consider inferior ischemia ST & T wave abnormality, consider anterolateral ischemia Abnormal ECG Compared to ECG 10/29/2018 08:18:25 Atrial premature complex(es) no longer present ST (T wave) deviation still present Possible ischemia still present Electronically Signed On 11-10-18 17:09:52 TUG CAPTAIN by Irving Cortez
== END 2018-11-10 13:46 | disposition home or self-care (01) ==
LOC: ER 10:17
DX: S00.90XA Unspecified superficial injury of unspecified part of head, initial encounter (principal); E86.0 Dehydration; W19.XXXA Unspecified fall, initial encounter; Y93.01 Activity, walking, marching and hiking; Y92.128 Other place in nursing home as the place of occurrence of the external cause; G30.9 Alzheimer's disease, unspecified; F02.80 Dementia in other diseases classified elsewhere, unspecified severity, without behavioral disturbance, psychotic disturbance, mood disturbance, and anxiety
CPT/HCPCS: 36415; 70450; 71045; 72125; 72170; 80048; 81015; 85025; 93005; 96360; 99285

== ENCOUNTER 2018-11-15 14:56 | Emergency (ER) | payer OTHER ==
--- NOTE | 2018-11-15 16:18 | RAD REPORT ---
EXAM DESCRIPTION: CT - [id number] - 11/15/2018 4:07 pm CLINICAL HISTORY: Trauma, head and neck injury. PAIN COMPARISON: Head C Spine Mpr Wo Con dated 11/10/2018; Head C Spine Mpr Wo Con dated 10/29/2018; Head C Spine Mpr Wo Con dated 04/01/2018 TECHNIQUE: Axial 5 mm thick images of the head were obtained. Axial 2 mm thick images of the cervical spine were obtained with sagittal and coronal reconstruction images generated and reviewed. All CT scans are performed using dose optimization technique as appropriate and may include automated exposure control or mA/KV adjustment according to patient size. FINDINGS: CT HEAD WITHOUT CONTRAST: No acute hemorrhage, hydrocephalus or extra-axial collection is identified.Advanced generalized brain atrophy is present with advanced periventricular and deep white matter chronic microvascular ischemi c changes.No areas of brain edema or midline shift. The paranasal sinuses and mastoids are clear.The calvarium is intact. CT CERVICAL SPINE WITHOUT CONTRAST: No fracture or subluxation.Moderate midcervical degenerative changes.No prevertebral soft tissues swe lling is identified. Carotid calcifications seen. Calcified pleural plaquing is present bilaterally c ompatible with prior asbestos exposure. IMPRESSION: No acute intracranial or cervical spine findings.
--- NOTE | 2018-11-15 16:37 | RAD REPORT ---
EXAM DESCRIPTION: RAD - Pelvis - 11/15/2018 4:23 pm CLINICAL HISTORY: TRAUMA Fall, pelvic pain COMPARISON: Pelvis dated 11/10/2018 FINDINGS: No acute fracture or dislocation is seen. Mild arthritic changes are present in both hips. IMPRESSION: No acute fracture is evident.
--- NOTE | 2018-11-15 16:39 | RAD REPORT ---
EXAM DESCRIPTION: RAD - Chest Single View - 11/15/2018 4:23 pm CLINICAL HISTORY: fall Chest pain. COMPARISON: Chest Single View dated 11/10/2018; Chest Single View dated 10/29/2018; Chest Single View d ated 03/17/2018; Head C Spine Mpr Wo Con dated 11/15/2018 FINDINGS: Portable technique limits examination quality. The lungs are grossly clear. The heart is normal in size. Tortuous thoracic aorta.Minimally displaced left posterior ninth and tenth rib fractures noted without pneumothorax. IMPRESSION: Minimally displaced left posterior ninth and tenth rib fractures.
--- NOTE | 2018-11-15 16:57 | ER ---
Nurse's Notes [facility] Name: Mary Wray Age: 83 yrs Sex: Male : 1935 Arrival Date: 11/15/2018 Time: 14:57 Bed 18 Private MD: Diagnosis: Multiple fractures of ribs, left side Presentation: 11/15 14:57 Presenting complaint: EMS states: per EMS, [place] speaking [facility], hj fell, unwitnessed from wheelchair to floor at the facilities dining [place], BGL- 137; BP- 115/76; hx of dementia and Alzheimer's. Transition of care: patient was not received from another setting of care. Onset of symptoms was November 15, 2018. Risk Assessment: Do you want to hurt yourself or someone else? Patient reports no desire to harm self or others. Initial Sepsis Screen: Does the patient meet any 2 criteria? No. Patient's initial sepsis screen is negative. Does the patient have a suspected source of infection? No. Patient's initial sepsis screen is negative. Care prior to arrival: None. 14:57 Method Of Arrival: EMS: [facility] 14:57 Acuity: GIANA 4 hj 15:04 Mechanism of Injury: Fall from wheelchair to floor;. Trauma event details: Injury hj occurred in the [facility], Injury occurred: in an institution. Injury occurred: November 15, 2018. Triage Assessment: 15:03 General: Appears in no apparent distress. uncomfortable, Behavior is calm, cooperative, hj appropriate for age. Pain: Unable to use pain scale. on C collar an dback board. Trauma Activation: Not Applicable Physician: ED Physician; Name: ; Notified At: ; Arrived At: Physician: General Surgeon; Name: ; Notified At: ; Arrived At: Physician: Radiology; Name: ; Notified At: ; Arrived At: Physician: Respiratory; Name: ; Notified At: ; Arrived At: Physician: Lab; Name: ; Notified At: ; Arrived At: Historical: - Allergies: 15:02 No Known Allergies; hj - Home Meds: 15:22 Aricept 5 mg Oral tab 1 tab once daily [Active]; Aspirin Oral [Active]; B hj complex-minerals Oral [Active]; buspirone 5 mg Oral tab [Active]; cholecalciferol (vitamin D3) Oral [Active]; clonidine HCl 0.1 mg Oral tab PRN [Active]; Depakote ER 500 mg Oral Tb24 1 tab BID [Active]; levothyroxine 50 mcg tab 1 tab once daily [Active]; lisinopril 10 mg Oral tab 1 tab once daily [Active]; Namenda 10 mg Oral tab 1 tab 2 times per day [Active]; Norvasc 5 mg Oral tab 1 tab once daily [Active]; Prosight Oral [Active]; Remeron Oral [Active]; - PMHx: 15:02 Alzheimers; Angina; Anxiety; Depression; Hyperlipidemia; Hypertension; Hypothyroidism; hj - PSHx: 15:02 Unable to obtain; hj - Immunization history:: Adult Immunizations up to date. - Social history:: Smoking status: Patient/guardian denies using tobacco, Patient/guardian denies using alcohol. - Immunization history: Last tetanus immunization: - up to date. - Ebola Screening: : Patient negative for fever greater than or equal to 101.5 degrees Fahrenheit, and additional compatible Ebola Virus Disease symptoms Patient denies exposure to infectious person Patient denies travel to an Ebola-affected area in the 21 days before illness onset. Screenin:04 Abuse screen: Denies threats or abuse. Denies injuries from another. Nutritional hj screening: No deficits noted. Tuberculosis screening: No symptoms or risk factors identified. Fall Risk Fall in past 12 months (25 points). Primary Survey: 15:14 NO uncontrolled hemorrhage observed. A: The patient is alert. Airway: patent, Patient hj intubated prior to arrival No supplemental oxygen in use on arrival. Oral cavity: clear, gag reflex present, Trachea midline. Breathing/Chest: Respiratory pattern: regular, Respiratory effort: spontaneous, unlabored, Breath sounds: clear, Chest inspection: symmetrical rise and fall of the chest. Circulation: Cardiac rhythm: Heart tones present. Pulses: palpable right radial artery, right posterior tibial artery, left radial artery and left posterior tibial artery. Skin color: pink, Skin temperature: warm, dry. Disability Alert. 15:14 Exposure/Environment: All clothing and personal items were removed. Forensic evidence hj collection is not deemed to be indicated at this time. Items placed in patient belonging bag. There is no evidence of uncontrolled external bleeding. No obvious injuries are noted at this time. A warming method has been applied: A warm blanket has been provided to the patient. Reassessment Airway Airway Patent Oxygen No O2 Oral cavity Clear +Gag reflex Trachea Midline Breathing/Chest Respiratory pattern Regular Respiratory effort Spontaneous Unlabored Breath sounds Clear Chest inspection Circulation Heart rhythm Sinus rhythm Heart tones Present Pulses Palpable Color [place] Temperature Warm Dry Disability Alert. Secondary Survey: 15:15 HEENT: No deficits noted. Gastrointestinal: No deficits noted. : No signs and/or hj symptoms were reported regarding the genitourinary system. Musculoskeletal: Reports pain in chest. Assessment: 15:16 Reassessment: used language line, [place], unable to respond to interpreters hj questions;. Vital Signs: 15:05 BP 121 / 68; Pulse 82; Resp 18; Temp 98.1(A); Pulse Ox 97% on R/A; Weight 68.04 kg; hj Height 5 ft. 4 in. (162.56 cm); 17:05 BP 120 / 70; Pulse 80; Resp 18; Pulse Ox 100% on R/A; hj 17:36 BP 131 / 92; Pulse 86; Resp 18; Pulse Ox 98% on R/A; hj 15:05 Body Mass Index 25.75 (68.04 kg, 162.56 cm) hj [place] Coma Score: 15:05 Eye Response: spontaneous(4). Verbal Response: oriented(5). Motor Response: obeys hj commands(6). Total: 15. Trauma Score (Adult): 15:05 Eye Response: spontaneous(1); Verbal Response: oriented(1); Motor Response: obeys hj commands(2); Systolic BP: > 89 mm Hg(4); Respiratory Rate: 10 to 29 per min(4); [place] Score: 15; Trauma Score: 12 ED Course: 14:57 Patient arrived in ED. hj 14:59 Triage completed. hj 15:06 Juarez Farris PA is PHCP. jr8 15:06 John York MD is Attending Physician. jr8 15:08 Steven Ray, ROBSON is Primary Nurse. hj 15:18 Arm band placed on right wrist. hj 15:19 Patient has correct armband on for positive identification. Bed in low position. Call hj light in reach. Side rails up X2. 15:19 Patient maintains SpO2 saturation greater than 95% on room air. hj 15:19 Thermoregulation: warm blanket given to patient. hj 15:[address] via stretcher. vr 16:10 CT Head C Spine In Process Unspecified. EDMS 16:31 XRAY Chest (1 view) In Process Unspecified. EDMS 16:31 Pelvis XRAY In Process Unspecified. EDMS 17:03 No provider procedures requiring assistance completed. Patient did not have IV access hj during this emergency room visit. Administered Medications: No medications were administered Intake: 17:03 PO: 0ml; Total: 0ml. hj Output: 17:03 Urine: 0ml; Total: 0ml. hj Outcome: 16:53 Discharge ordered by MD. cunha 17:03 [facility] Report called to ROBSON Muhammad 17:03 Condition: stable 17:03 Instructed on follow up and referral plans. Demonstrated understanding of instructions. 17:04 Patient's length of stay was not longer than 2 hours. hj 18:11 Patient left the ED. hj Signatures: Dispatcher [employer] EDLyubov Bernard vr Juarez Farris PA PA jr8 Joaquin, Henry RN RN jennifer
--- NOTE | 2018-11-15 16:58 | EDPHYS ---
Physician Documentation [facility] Name: Mary Wray Age: 83 yrs Sex: Male : 1935 Arrival Date: 11/15/2018 Time: 14:57 Bed 18 Private MD: ED Physician John York HPI: 11/15 16:21 This 83 yrs old Male presents to ER via EMS with complaints of Fall Injury. jr8 16:21 Details of fall: The patient fell from seated position, out of a wheelchair. Onset: The jr8 symptoms/episode began/occurred acutely, today. Associated injuries: The patient sustained unknown. Severity of symptoms: At their worst the symptoms were mild. It is unknown whether or not the patient has had similar symptoms in the past. It is unknown whether or not the patient has recently seen a physician. Patient brought in by EMS after having an unwitnessed fall at [place] from wheelchair to floor by dining room area. Patient with baseline history of dementia and British speaking only. Patient for the most part is non verbal but will follow commands. Only says no when asked about pain . Historical: - Allergies: 15:02 No Known Allergies; hj - Home Meds: 15:22 Aricept 5 mg Oral tab 1 tab once daily [Active]; Aspirin Oral [Active]; B hj complex-minerals Oral [Active]; buspirone 5 mg Oral tab [Active]; cholecalciferol (vitamin D3) Oral [Active]; clonidine HCl 0.1 mg Oral tab PRN [Active]; Depakote ER 500 mg Oral Tb24 1 tab BID [Active]; levothyroxine 50 mcg tab 1 tab once daily [Active]; lisinopril 10 mg Oral tab 1 tab once daily [Active]; Namenda 10 mg Oral tab 1 tab 2 times per day [Active]; Norvasc 5 mg Oral tab 1 tab once daily [Active]; Prosight Oral [Active]; Remeron Oral [Active]; - PMHx: 15:02 Alzheimers; Angina; Anxiety; Depression; Hyperlipidemia; Hypertension; Hypothyroidism; hj - PSHx: 15:02 Unable to obtain; hj - Immunization history:: Adult Immunizations up to date. - Social history:: Smoking status: Patient/guardian denies using tobacco, Patient/guardian denies using alcohol. - Immunization history: Last tetanus immunization: - up to date. - Ebola Screening: : Patient negative for fever greater than or equal to 101.5 degrees Fahrenheit, and additional compatible Ebola Virus Disease symptoms Patient denies exposure to infectious person Patient denies travel to an Ebola-affected area in the 21 days before illness onset. ROS: 16:21 Unable to obtain ROS due to baseline dementia. jr8 Exam: 16:21 Head/Face: Normocephalic, atraumatic. Eyes: Pupils equal round and reactive to light, jr8 extra-ocular motions intact. Lids and lashes normal. Conjunctiva and sclera are non-icteric and not injected. Cornea within normal limits. Periorbital areas with no swelling, redness, or edema. ENT: Nares patent. No nasal discharge, no septal abnormalities noted. Tympanic membranes are normal and external auditory canals are clear. Oropharynx with no redness, swelling, or masses, exudates, or evidence of obstruction, uvula midline. Mucous membranes moist. Neck: Trachea midline, no thyromegaly or masses palpated, and no cervical lymphadenopathy. Supple, full range of motion without nuchal rigidity, or vertebral point tenderness. No Meningismus. Cardiovascular: Regular rate and rhythm with a normal S1 and S2. No gallops, murmurs, or rubs. Normal PMI, no JVD. No pulse deficits. Respiratory: Lungs have equal breath sounds bilaterally, clear to auscultation and percussion. No rales, rhonchi or wheezes noted. No increased work of breathing, no retractions or nasal flaring. Abdomen/GI: Soft, non-tender, with normal bowel sounds. No distension or tympany. No guarding or rebound. No evidence of tenderness throughout. Back: No spinal tenderness. No costovertebral tenderness. Full range of motion. Skin: Warm, dry with normal turgor. Normal color with no rashes, no lesions, and no evidence of cellulitis. MS/ Extremity: Pulses equal, no cyanosis. Neurovascular intact. Full, normal range of motion. 16:21 Neuro: Orientation: to person, Mentation: able to follow commands, slow to respond, Memory: unable to test, Cranial nerves: extraocular movements are intact, Tongue strength is normal, Motor: moves all fours, Sensation: no obvious gross deficits, seizure activity, is not displayed by the patient, Abnormal movements: there are no abnormal movements. Vital Signs: 15:05 BP 121 / 68; Pulse 82; Resp 18; Temp 98.1(A); Pulse Ox 97% on R/A; Weight 68.04 kg; hj Height 5 ft. 4 in. (162.56 cm); 17:05 BP 120 / 70; Pulse 80; Resp 18; Pulse Ox 100% on R/A; hj 17:36 BP 131 / 92; Pulse 86; Resp 18; Pulse Ox 98% on R/A; hj 15:05 Body Mass Index 25.75 (68.04 kg, 162.56 cm) hj [place] Coma Score: 15:05 Eye Response: spontaneous(4). Verbal Response: oriented(5). Motor Response: obeys hj commands(6). Total: 15. Trauma Score (Adult): 15:05 Eye Response: spontaneous(1); Verbal Response: oriented(1); Motor Response: obeys hj commands(2); Systolic BP: > 89 mm Hg(4); Respiratory Rate: 10 to 29 per min(4); [place] Score: 15; Trauma Score: 12 MDM: 15:10 Patient medically screened. jr8 16:52 Data reviewed: vital signs, nurses notes, radiologic studies, CT scan, plain films, and jr8 as a result, I will discharge patient. Data interpreted: Pulse oximetry: on room air is 97 %. Interpretation: normal. Counseling: I had a detailed discussion with the patient and/or guardian regarding: the historical points, exam findings, and any diagnostic results supporting the discharge/admit diagnosis, radiology results, the need for outpatient follow up, a family practitioner, to return to the emergency department if symptoms worsen or persist or if there are any questions or concerns that arise at home. 11/15 15:49 Order name: CT Head C Spine; Complete Time: 16:44 jr8 11/15 15:49 Order name: XRAY Chest (1 view); Complete Time: 17:11 jr8 11/15 15:49 Order name: Pelvis XRAY; Complete Time: 17: jr8 Administered Medications: No medications were administered Disposition: 11/16 14:24 Co-signature as Attending Physician, John York MD. Disposition: 11/15/18 16:53 Discharged to Home. Impression: Multiple fractures of ribs, left side. - Condition is Stable. - Discharge Instructions: Rib Fracture. - Medication Reconciliation Form, Thank You Letter, Antibiotic Education, Prescription Opioid Use form. - Follow up: Private Physician; When: 2 - 3 days; Reason: Recheck today's complaints, Continuance of care, Re-evaluation by your physician. - Problem is new. - Symptoms are unchanged. Signatures: Dispatcher [employer] EDMS Juarez Farris PA PA jr8 Steven Ray RN RN hj Starr, Gregory, MD MD gs Corrections: (The following items were deleted from the chart) 11/15 18:11 16:53 11/15/2018 16:53 Discharged to Home. Impression: Multiple fractures of ribs, left hj side. Condition is Stable. Forms are Medication Reconciliation Form, Thank You Letter, Antibiotic Education, Prescription Opioid Use. Follow up: Private Physician; When: 2 - 3 days; Reason: Recheck today's complaints, Continuance of care, Re-evaluation by your physician. Problem is new. Symptoms are unchanged. jr8
== END 2018-11-15 18:11 | disposition home or self-care (01) ==
LOC: ER 14:56
DX: S22.42XA Multiple fractures of ribs, left side, initial encounter for closed fracture (principal); W05.0XXA Fall from non-moving wheelchair, initial encounter; Y93.89 Activity, other specified; Y92.128 Other place in nursing home as the place of occurrence of the external cause; Z79.82 Long term (current) use of aspirin; G30.9 Alzheimer's disease, unspecified; F02.80 Dementia in other diseases classified elsewhere, unspecified severity, without behavioral disturbance, psychotic disturbance, mood disturbance, and anxiety; F32.9 Major depressive disorder, single episode, unspecified; I10 Essential (primary) hypertension; E03.9 Hypothyroidism, unspecified
CPT/HCPCS: 70450; 71045; 72125; 72170; 99284